=== PATIENT | female | born 1985 | race Caucasian/White ===

== ENCOUNTER 2016-09-25 19:29 | Emergency (ER) | payer OTHER ==
[~2016-09-25] VITALS: Ht 162.6 cm; Wt 73.5 kg
[2016-09-25 20:05] VITALS: BP 155/73
--- NOTE | 2016-09-25 20:11 | NUR ---
PT TAKEN TO BED 5
--- NOTE | 2016-09-25 20:28 | NUR ---
Dr. Pyle evaluating patient at bedside.
--- NOTE | 2016-09-25 20:29 | NUR ---
PATIENT PRESENTS TO ED WITH ABD PAIN X1WEEK . PT STATES THE PAIN IS RELASTED TO HER HERNIA THAT SHE WAS DIAGNOSED WITH X1WEEK AGO . DENIES N/V/D; SKIN IS PINK/WARM/DRY; AAOX4 WITH EVEN AND STEADY GAIT; LUNGS CLEAR BL; HR EVEN AND REGULAR; PT DENIES ANY FEVER, CP, SOB, OR COUGH AT THIS TIME; PATIENT STATES PAIN OF 8/10 AT THIS TIME; VSS; PATIENT POSITIONED FOR COMFORT; HOB ELEVATED; BEDRAILS UP X2; BED DOWN. ER MD MADE AWARE OF PT STATUS.
[2016-09-25] MEDS ORDERED: NACL 0.9% 1,000 ML IV SCH (20:43)
[2016-09-25] MEDS ORDERED: ONDANSETRON 4 MG/2 ML VIAL IVP ONE (20:45)
[2016-09-25] MEDS ORDERED: FAMOTIDINE 20 MG/2 ML VIAL IVP ONE (20:45)
[2016-09-25] MEDS ORDERED: HYDROmorphone 1 MG/ML AMP IVP ONE (20:45)
--- NOTE | 2016-09-25 21:34 | NUR ---
Patient appears to be resting comfortably in bed. Vital Signs within normal limits. Respirations even and unlabored. FRIEND AT BEDSIDE
--- NOTE | 2016-09-25 22:22 | NUR ---
PT RETURN FROM CT
[2016-09-25 23:37] VITALS: BP 120/75
== END 2016-09-25 23:27 | disposition home or self-care (01) ==
LOC: MED 19:29
DX: K43.9 Ventral hernia without obstruction or gangrene (principal); R03.0 Elevated blood-pressure reading, without diagnosis of hypertension; Z90.89 Acquired absence of other organs
CPT/HCPCS: 36415; 74177; 80053; 81001; 81025; 82150; 83690; 85025; 96374; 96375; 99285; J1170; J2405; J3490; J7030; Q9967